=== PATIENT | male | born 1990 | race Two or more races ===

== ENCOUNTER 2019-08-20 03:47 | Emergency (ER) | payer MEDICAID ==
[~2019-08-20] VITALS: Ht 175.3 cm; Wt 136.1 kg
[2019-08-20 03:57] VITALS: Ht 175.3 cm; Wt 136.1 kg
[2019-08-20 08:57] VITALS: BP 134/75
== END 2019-08-20 08:57 | disposition home or self-care (01) ==
LOC: ED 03:47
DX: F10.129 Alcohol abuse with intoxication, unspecified (principal)